=== PATIENT | female | born 2000 | race Asian ===

== ENCOUNTER 2023-11-08 01:27 | Emergency (ER) | payer BC, SELFPAY ==
--- NOTE | ~2023-11-08 | XR_ITS ---
EXAMINATION: XR THORACIC SPINE CLINICAL INFORMATION: Pain COMPARISON: None available. TECHNIQUE: 3 views of the thoracic spine were obtained. FINDINGS: Alignment throughout the thoracic spine appears anatomic. Vertebral body heights are maintained. Intervertebral disc spaces also appear preserved. No acute fracture is seen. XR/XR thoracic spine 3V IMPRESSION: No acute findings identified.
--- NOTE | ~2023-11-08 | XR_ITS ---
EXAMINATION: XR FOOT, RIGHT CLINICAL INFORMATION: Second toe pain COMPARISON: None available. TECHNIQUE: AP, lateral, and oblique views of the right foot. FINDINGS: Osseous alignment is anatomic. No acute fracture is seen. There is focal resorption at the distal phalanx of the second digit, while the distal phalanges of the remaining digits appear unremarkable. XR/XR foot RT min 3V IMPRESSION: Focal resorption at the distal phalanx of the second digit, which can be seen with acro-osteolysis. Differential considerations would include epidermal inclusion cyst, glomus tumor of the digit, or possibly osteomyelitis in the proper clinical setting. Further evaluation with MRI may be helpful.
[2023-11-08 01:33] VITALS: BP 100/70; BP 126/82; PULSE 92; RESP 17; TEMP 36.7; O2SAT 100; O2SAT 99; BMI 19.9
--- NOTE | 2023-11-08 01:38 | ED_ITS ---
HPI - Extremity Injury (Lower) General Chief Complaint: Extremity Injury, Lower Stated Complaint: TOE PAIN Time Seen by Provider: 11/08/23 01:35 Source: patient Mode of arrival: EMS Limitations: no limitations History of Present Illness HPI Narrative: 23 yo female no PMH got out of bed and hit her 2nd toe on R foot on chair. notes hurts to touch and walk denies other injury MD complaint: foot injury Onset (ago): hour(s) (few) Type of Injury: blunt Place: home Severity: moderate Relieving factors: rest Exacerbating factors: weight bearing, movement and palpation Context: direct blow Associated symptoms: swelling Other symptoms: none Treatments prior to arrival: cold therapy Related Data Allergies Allergy/AdvReac Type Severity Reaction Status Date / Time No Known Allergies Allergy Verified 11/08/23 01:38 Review of Systems Review of Systems: Constitutional : No Fever, No Chills ENT/Mouth : No Ear Pain, No Hoarseness, No sore throat Eyes: No Eye Pain, No Swelling, No Redness, No Foreign Body Cardiovascular : No Chest Pain, No SOB Respiratory : No Cough, No Dyspnea Gastrointestinal : No Nausea, No Vomiting, No Diarrhea, No abdominal Pain Genitourinary : No Dysuria, No Hematuria Musculoskeletal : positive joint pain, No Myalgias, No Joint Swelling Skin : No Skin lacerations, No rash Neuro : No Weakness, No Numbness, No Loss of Consciousness, No Dizziness, No Headache Psych : No Anxiety/Panic, No Depression Heme/Lymph: no easy bruising, no Lymphadenopathy Endocrine : No Polyuria, No Polydipsia All other systems reviewed and are negative [facility] Past Medical History Attestation statement: The following information was validated with the patient. Medical History (Updated 11/08/23 @ 03:53 by Margarita Rebolledo DO) No pertinent past medical history Social History Social History Smoked in Last 30 Days: No Use of substances other than those prescribed or required for medical reasons: No Advance Directives: No Advance Directives Information Provided: Yes Do you have a plan to hurt others: No Plan Patient : No Physical Exam Vital Signs: Vital Signs: Last Vital Signs Temp 98.1 F 11/08/23 04:04 Pulse 91 11/08/23 04:04 Resp 15 11/08/23 04:04 BP 107/70 04/30/24 04:04 Pulse Ox 99 11/08/23 04:04 O2 Del Method Room Air 11/08/23 04:04 BMI result Body Mass Index 19.9 Appearance: Alert. Oriented X3. No acute distress. Eyes: Pupils equal, round and reactive to light. ENT: Pharynx normal. Neck: Normal inspection. Neck supple. CVS: Normal heart rate and rhythm. Pulses normal. Respiratory: No respiratory distress. Breath sounds normal. Abdomen: Soft and nontender. Skin: Skin warm and dry. Normal skin color. Normal skin turgor. Extremities: No lower extremity edema. ecchymosis and pain noted on R 2nd toe dorsum NV intact Neuro: Oriented X 3. No motor deficit. No sensory deficit. Course Course Course Narrative: patient notified about MRI after discharge by LESLIE Chatman Medical Decision Making Medical Decision Making MDM Narrative: 23 yo female with injury to R 2nd toe after blunt injury at this time will obtain xray she is NV intact Differential Diagnosis Differential Diagnoses: The differential diagnosis associated with the presentation includes contusion, sprain fracture Independent Interpretation I performed an independent interpretation of an: Plain X-Ray (no obvious fracture) Radiology Impression Discussion of test interpretation with radiology: I have reviewed the radiologist's reading. Independent Historian Clinical information obtained from an independent historian. History obtained from or confirmed by: EMS Discharge Plan Discharge Clinical Impression: Contusion of second toe Qualifiers: Encounter type: initial encounter Laterality: right Qualified Code(s): S90.121A - Contusion of right lesser toe(s) without damage to nail, initial encounter Patient Disposition: Home, Self-Care Instructions: Contusion in Adults (ED) Additional Instructions: no obvious fracture on initial read of xray will call you in AM if there is any signs of broken bone by radiology wear tape around toes for the next one week return for worsening pain or swelling limit exercise and jumping for 1 to 2 weeks depending on your pain Stand Alone Forms: Work/School Release Interventions: ED Discharge Assessment Last Done: 11/08/23 04:04 Discharge Date/Time: 11/08/23 04:33 Print Language: [place] Citizen
--- NOTE | 2023-11-08 01:42 | PC.NURSE ---
pt biba from [facility], reporting getting out of bed and swung leg into a chair. pt reporting right index toe pain, reports painful to bare weight. bruising noted on the right index toe, cms in tact. pt taken to Xray at this time.
--- NOTE | 2023-11-08 03:15 | PC.NURSE ---
pt ambulated to bathroom with steady gait.
[2023-11-08 04:04] VITALS: BP 107/70; PULSE 91; RESP 15; TEMP 36.7; O2SAT 99
== END 2023-11-08 04:33 | disposition home or self-care (01) ==
PROVIDERS: Emergency Provider Emergency Medicine
DX: S90.121A Contusion of right lesser toe(s) without damage to nail, initial encounter (principal); W22.03XA Walked into furniture, initial encounter; Y93.9 Activity, unspecified; Y92.009 Unspecified place in unspecified non-institutional (private) residence as the place of occurrence of the external cause; Y99.9 Unspecified external cause status
CPT/HCPCS: 72072; 73630; 99283; 99284